=== PATIENT | male | born 1990 | race Caucasian/White ===

== ENCOUNTER 2024-05-25 16:46 | Emergency (ER) | payer BC, SELFPAY ==
[2024-05-25 16:57] VITALS: BP 139/93
[2024-05-25 17:24] LABS: % Basophils 0.6 % (0-2); % Immature Granulocytes 0.5 % (0-0.5); % Lymphocytes 13.1 % (20.5-51.1); % Monocytes 7.6 % (1.7-9.3); % Neutrophils 75.2 % (42.2-75.2); Absolute Eosinophils 0.2 10^3/uL (0-0.7); Absolute Lymphocytes 0.8 10^3/uL (1.2-3.4); Absolute Monocytes 0.5 10^3/uL (0.1-0.6); Absolute Neutrophils 4.8 10^3/uL (1.4-6.5); Hematocrit 38.6 % (39.0-52.0); Hemoglobin 13.1 g/dL (13.0-18.0); Mean Corp Hgb Conc. 33.9 g/dL (33.0-37.0); Mean Corpuscular Volume 85.4 fL (80.0-94.0); Mean Platelet Volume 8.4 fL (7.4-10.4); Nucleated Red Blood Cells % 0 % (-); Platelet Count 566 10^3/uL (130-400); Red Blood Cell Count 4.52 10^6/uL (4.70-6.10); Red Cell Dist. Width 14.2 % (11.5-14.5); White Blood Cell Count 6.4 10^3/uL (4.8-10.8)
[2024-05-25 17:37] LABS: ALT (SGPT) 24 U/L (0-50); AST (SGOT) 26 U/L (17-59); Albumin 4.6 g/dl (3.5-5.0); Alkaline Phosphatase 93 U/L (38-126); Blood Urea Nitrogen 15 mg/dl (9-20); Calcium 9.6 mg/dl (8.4-10.2); Carbon Dioxide 22 mmol/L (22-30); Chloride 103 mmol/L (98-107); Glucose 83 mg/dl (70-99); Potassium 3.8 mmol/L (3.5-5.1); Sodium 141 mmol/L (135-145); Total Bilirubin 0.5 mg/dl (0.2-1.3); Total Protein 7.6 g/dl (6.3-8.2); eGFR > 60.00
--- NOTE | 2024-05-25 18:35 | ED.GENMED ---
History of Present Illness
General
Chief Complaint: Skin Problem
Source: patient
Exam Limitations: none
Time Seen by Provider: 05/25/24 17:56
History of Present Illness
History of Present Illness:
This is a 33 year male that comes in with c/o poison on the right arm with open area's due to patient scratching and an abscess on the left wrist. States that he had had some kind of poison on the right arm and it seemed to gl away and then came
back. States that he has been scratching. States that this started yesterday. Then on the left wrist he has an abscess or a bug bit that started 5 days ago. States that this area is red and tender to the touch. Denies any fever, chills, chest pain,
SOB, abd pain, nausea, vomiting, diarrhea, headache, dizziness, urinary burning.
Past History
Past History
ED Past Medical History: Asthma, Seizures and Other (ADHD, Pancreatitis, )
ED Past Surgical History: Other (Nose surgery)
Social History
Tobacco: Non-smoker
Alcohol: Occasional
Personal: Single
Living: with family
Review of Systems
Review of Systems
All Other Systems: ROS reviewed and negative except as documented in HPI and ROS
Constitutional: Reports no symptoms; Denies fever or chills
EENT: Reports no symptoms
Respiratory: Reports no symptoms; Denies cough or trouble breathing
Cardiac: Reports no symptoms; Denies chest pain
ABD/GI: Reports no symptoms; Denies abdominal pain, nausea, vomiting or diarrhea
: Reports no symptoms; Denies dysuria, frequency or urgency
Musculoskeletal: Reports no symptoms
Skin: Reports other (OPen area on the right upper arm and forearm with slight redness and swelling of the arm. Abscess noted on the left lateral wrist area with redness and tenderness to the touch. )
Neurological: Reports no symptoms; Denies dizzy or headache
Psychiatric: Reports no symptoms
Phy Exam
General Physical Exam
General Presentation: well appearing and no apparent distress
General age: appears stated age
General Skin: warm and dry
General Habitus: poor hygiene
General Mental: alert
General Hydration: appears well hydrated
ENT Exam
ENT Exam: TM's normal, pharynx normal and neck supple
Eye Exam
Eye Exam: EOMI
Cardiovascular Exam
Cardiovascular Exam: regular rate/rhythm, no murmur and normal peripheral pulses
Pulmonary Exam
Pulmonary Exam: lungs clear, no respiratory distress, no rales, chest non tender, no crackles, no rhonchi, no wheezing and no cough
Gastrointestinal Exam
Gastrointestinal Exam: normal bowel sounds, non tender, soft, no organomegaly, no pulsatile mass and non distended
Musculoskeletal Exam
Musculoskeletal Exam: full ROM and other (right slightly swollen normal peripheral pulse)
Skin Exam
Skin Exam: normal color, warm/dry, no petechia and other (Slight redness of the right arm with redness and open wounds on the upper and lower arm. Left wrist abscess with redness. )
Psychiatric Exam
Psychiatric Exam: normal mood/affect
Course
Orders/Labs/Results
Orders:
Orders
05/25/24 17:14
Complete Blood Count/With Diff Urgent
Comprehensive Metabolic Panel Urgent
05/25/24 18:34
Cephalexin Monohydrate [Keflex] 500 mg PO NOW STA
Sulfamethox./Trimethoprim Ds [Bactrim Ds 800 mg/160 mg] 1 tablet PO NOW STA
Abnormal Lab Results
05/25/24
17:14
RBC 4.52 L 10^6/uL
(4.70-6.10)
Hct 38.6 L %
(39.0-52.0)
Plt Count 566 H 10^3/uL
(130-400)
Absolute Lymphs (auto) 0.8 L 10^3/uL
(1.2-3.4)
Lymphocytes % 13.1 L %
(20.5-51.1)
05/25/24 17:14
05/25/24 17:14
Thrombocytosis, Otherwise normal labs.
Vital Signs
Initial and Last Documented VS:
Initial Vital Signs
Temp Pulse Resp BP Pulse Ox
99.3 F 109 16 139/93 98
05/25/24 16:57 05/25/24 16:57 05/25/24 16:57 05/25/24 16:57 05/25/24 16:57
Last Documented Vital Signs
Temp Pulse Resp BP Pulse Ox
99.3 F 109 16 139/93 98
05/25/24 16:57 05/25/24 16:57 05/25/24 16:57 05/25/24 16:57 05/25/24 16:57
Procedures
Incision/Drainage/Joint Aspiration
Left Lateral Wrist:
Anethesia: 1% Lidocaine
Preparation: cleaned with Betadine (and alcohol)
Type of procedure: incise
Nature of site: abscess
Description of abscess: less than 3cm
Loculations broken up: Yes
How much fluid was obtained?: scant amount
Fluid description: bloody
Treatment: left open for drainage and antibiotics started
MDM/Problems Addressed
Differential Diagnosis Includes:
slight Cellulitis right arm, Abscess left wrist
MDM/Problems Addressed:
This is a 33 year old male that comes in with c/o open wound on the right arm and an abscess. bug bite on the left wrist. States that the right arm started yesterday and the left arm was 5 days ago.
Left wrist abscess opened and culture obtained with scan amount or blood drainage. Right upper arm and forearm open wounds from scratching with slight cellulitis fo the arm. Will start patient on antibiotics and sent prescription to his pharmacy.
Patient to return with fever, increased redness or swelling or any other concerns.
Chronic conditions affecting care:
NA
Acute Exacerbation and/or Progression of Chronic Illness:
NA
*Pulse Oximetry
Patient hypoxic: no
*EKG
Interpreted by ED Provider?: NA
Rate: EKG- N/A
*Wrapper Stitcher Interpretation
Rate: Wrapper Stitcher- N/A
*Critical Care Note
Total Time (30-74mins, 75-104mins- exclusive of procedures): Not Applicable
ED Attending Note
-
Portions of this chart may have been created with voice recognition software.� Occasional wrong word or��sound alike� substitutions may have occurred due to the inherent limitations of voice recognition software.
Discharge Plan
Departure
Patient Disposition: Home (Routine Discharge)
Date of Disposition: 05/25/24
Time of Disposition: 18:51
Patient with high blood pressure during this ER visit?: Yes
Condition: Good
Covid-19: Not Applicable
Discharge Problem:
Cellulitis of arm, right, Open wounds right arm, Abscess of skin of left wrist
Instructions: Wound Care (DC), Cellulitis (Skin Infection), Adult (DC), BLOOD PRESSURE, Skin Abscess
Prescriptions:
New
cephalexin 500 mg capsule
500 mg PO QID 10 Days Qty: 40 0RF
sulfamethoxazole-trimethoprim [Bactrim DS] 800-160 mg tablet
1 tab PO BID 7 Days Qty: 14 0RF
Referrals:
NONE,* [Family Provider] -
Activity Restrictions/Additional Instructions:
As discussed, the right arm appears to have a slight cellulitis due to the open wounds and scratching. Please try and not scratch. You may use Benadryl 50mg as needed for the itching. This will make you tired. You have had the left wrist abscess
opened but there was scant amount of drainage. Please keep both the right arm and left wrist clean with warm soapy water. You have been started on 2 antibiotics and 2 prescriptions have been sent to your Pharmacy. Please take as directed until
finished. Please follow up with the family doctor in the next 2-3 days for recheck. IF YOU HAVE FEVER, INCREASED REDNESS OR SWELLING OR YOU HAVE ANY OTHER CONCERNS PLEASE RETURN TO THE EMERGENCY ROOM.
Discharge Date and Time
Print Language: AZERI
[2024-05-25] MEDS: KEFLEX 500 MG PO (18:53)
[2024-05-25] MEDS: BACTRIM DS 800 MG/160 MG 1 TABLET PO (18:53)
[2024-05-25 18:55] VITALS: BP 134/84
== END 2024-05-25 19:05 | disposition home or self-care (01) ==
LOC: EMR 16:46
PROVIDERS: Student in an Organized Health Care Education/Training Program; EMERGENCY PHYSICIAN Student in an Organized Health Care Education/Training Program
DX: S51.809A Unspecified open wound of unspecified forearm, initial encounter (principal); L02.414 Cutaneous abscess of left upper limb; X58.XXXA Exposure to other specified factors, initial encounter; J45.909 Unspecified asthma, uncomplicated; F90.9 Attention-deficit hyperactivity disorder, unspecified type
CPT/HCPCS: 99283; 10060; 80053; 85025; 87070; 87147; 87186; 87205

== ENCOUNTER 2024-08-01 18:59 | Emergency (ER) | payer BC, SELFPAY ==
[2024-08-01 19:01] VITALS: BP 160/88
--- NOTE | 2024-08-01 19:21 | ED.GENMED ---
History of Present Illness
General
Chief Complaint: Cold/Flu/URI Symptoms
Time Seen by Provider: 08/01/24 19:21
History of Present Illness
History of Present Illness:
TIME OF INITIAL ENCOUNTER: 7:25 PM
HPI: 10 days ago, the patient went to an urgent care near his place of work in [place]. At that time he was diagnosed with strep throat and placed on 10 days of antibiotics. This initially helped his throat pain but now his throat pain has
recurred. He feels somewhat feverish at times, has a headache and overall myalgias. There is some degree of coughing. He feels the symptoms are bad enough that he needs to have an IV.
EXAM:
GENERAL: Well appearing in no distress, no meningeal signs
HEENT: Moist oral mucosa, no evidence of JIRA DEVELOPER on exam, minimal posterior oropharyngeal erythema without exudate
CARDIOVASCULAR: No murmurs, normal heart rate, regular rhythm, No chest wall tenderness
PULMONARY: No respiratory distress, breath sounds are clear and equal
ABDOMEN: Soft with no peritoneal signs, no tenderness
NEUROLOGIC: Excellent strength all extremities, no coordination deficits
PSYCHIATRIC: Appropriate mental status, normal insight and judgement
EXTREMITIES: Nontender, no edema, moves all extremities equally
SKIN: No rash, no lesions
NUMBER AND COMPLEXITY OF PROBLEMS ADDRESSED AT THE ENCOUNTER
� Chronic conditions affecting care: Seizures, asthma, ADHD
� Acute Exacerbation and/or Progression of Chronic Illness: This is an acute problem
� Differential Diagnosis includes: Viral syndrome, no evidence of JIRA DEVELOPER based on physical examination, sepsis unlikely, dehydration
AMOUNT AND/OR COMPLEXITY OF DATA TO BE REVIEWED AND ANALYZED
� I performed an independent evaluation of and my interpretation is:
EKG:
CT:
X-rays:
Laboratory Studies: White count is 15.5, hemoglobin normal, chemistries unremarkable, mono and COVID-negative
Other:
� Review of other/old records: The patient has been seen here in May of chills and 24 related to an abscess of the left wrist
� Clinical information was obtained by an independent historian: None needed
� Prescriptions/Medications Considered but not given:
� Further testing considered but not performed: Considered x-ray however the symptoms are more diffuse and he has no significant shortness of breath and was recently on antibiotics.
RISK OF COMPLICATIONS AND/OR MORBIDITY OR MORTALITY OF PATIENT MANAGEMENT
� Social determinants of health affecting care: Lives at home
� Discussion with other providers:
� Escalation of care including admission/observation vs risk of discharge considered: See below
ANY OTHER UPDATES:
8:50 PM: I reevaluated patient. The patient does report some improvement after meds given. Leukocytosis is noted with a mild left shift however he is afebrile and heart rate is 91. He is very well-appearing. His breath sounds were clear. As he
has associated headache and myalgias, I suspect that he has a viral syndrome.
Past History
Past History
ED Past Medical History: Asthma, Seizures and Other (ADHD, Pancreatitis, )
ED Past Surgical History: Other (Nose surgery)
Social History
Tobacco: Non-smoker
Alcohol: Occasional
Personal: Single
Living: with family
Phy Exam
Physical Exam
Physical Exam:
See HPI
Course
Orders/Labs/Results
Orders:
Orders
08/01/24 19:03
Electrocardiogram (*1) Urgent
Reason for Study: Chest Pain
EKG- Treatment ONCE
08/01/24 19:26
0.9% Sodium Chloride 1000 ml [Nss] 1,000 ml IV BOLUS
Dexamethasone Sod Phosphate [Decadron] 10 mg IV NOW STA
Ketorolac [Toradol] 15 mg IV NOW STA
08/01/24 19:39
COVID-19 Antigen Urgent
Source: Nasal Swab
Complete Blood Count/With Diff Urgent
Comprehensive Metabolic Panel Urgent
Monotest Urgent
Influenza A+B Rapid Molecular Urgent
YENI Source: Nasal Swab
Specimen Description:
Abnormal Lab Results
08/01/24
19:39
WBC 15.8 H 10^3/uL
(4.8-10.8)
RBC 4.66 L 10^6/uL
(4.70-6.10)
Abs Immat Gran (auto) 0.1 H 10^3/uL
(0-0.05)
Absolute Neuts (auto) 13.0 H 10^3/uL
(1.4-6.5)
Absolute Monos (auto) 1.1 H 10^3/uL
(0.1-0.6)
Neutrophils % 82.2 H %
(42.2-75.2)
Lymphocytes % 9.3 L %
(20.5-51.1)
Chloride 97 L mmol/L
(98-107)
08/01/24 19:39
08/01/24 19:39
Vital Signs
Initial and Last Documented VS:
Initial Vital Signs
Temp Pulse Resp BP Pulse Ox
99.1 F 108 16 160/88 97
08/01/24 19:01 08/01/24 19:01 08/01/24 19:01 08/01/24 19:01 08/01/24 19:01
Last Documented Vital Signs
Temp Pulse Resp BP Pulse Ox
99.1 F 91 16 132/84 97
08/01/24 19:01 08/01/24 19:58 08/01/24 19:01 08/01/24 19:58 08/01/24 19:01
*Critical Care Note
Total Time (30-74mins, 75-104mins- exclusive of procedures): Not Applicable
ED Attending Note
-
Portions of this chart may have been created with voice recognition software.� Occasional wrong word or��sound alike� substitutions may have occurred due to the inherent limitations of voice recognition software.
Discharge Plan
Departure
Prescriptions:
No Action
cephalexin 500 mg capsule
500 mg PO QID 10 Days Qty: 40 0RF
sulfamethoxazole-trimethoprim [Bactrim DS] 800-160 mg tablet
1 tab PO BID 7 Days Qty: 14 0RF
Referrals:
Kate Ramirez MD [Family Provider] -
Interventions
Interventions:
*Risk Screen - Suicide Last Done: 08/01/24 19:03
*General Assessment Last Done: 08/01/24 20:00
*Neglect/Abuse Screening Last Done: 08/01/24 19:03
*ED COVID-19 Vaccine History Last Done: 08/01/24 19:03
ED- Pulmonary Assessment Last Done: 08/01/24 20:00
Discharge Date and Time
Print Language: VINCENTIAN
[2024-08-01] MEDS: DECADRON 10 MG IV (19:42)
[2024-08-01] MEDS: TORADOL 15 MG IV (19:43)
[2024-08-01] MEDS: NSS 1000 IV (19:44)
[2024-08-01 19:48] LABS: % Basophils 0.4 % (0-2); % Eosinophils 0.8 % (0-6); % Immature Granulocytes 0.4 % (0-0.5); % Lymphocytes 9.3 % (20.5-51.1); % Monocytes 6.9 % (1.7-9.3); % Neutrophils 82.2 % (42.2-75.2); Absolute Basophils 0.1 10^3/uL (0-0.2); Absolute Eosinophils 0.1 10^3/uL (0-0.7); Absolute Immature Granulocytes 0.1 10^3/uL (0-0.05); Absolute Lymphocytes 1.5 10^3/uL (1.2-3.4); Absolute Monocytes 1.1 10^3/uL (0.1-0.6); Hematocrit 40.1 % (39.0-52.0); Hemoglobin 13.6 g/dL (13.0-18.0); Mean Corp Hgb Conc. 33.9 g/dL (33.0-37.0); Mean Corpuscular Hgb 29.2 pg (27.0-31.0); Mean Corpuscular Volume 86.1 fL (80.0-94.0); Mean Platelet Volume 8.3 fL (7.4-10.4); Nucleated Red Blood Cells % 0 % (-); Platelet Count 387 10^3/uL (130-400); Red Blood Cell Count 4.66 10^6/uL (4.70-6.10); Red Cell Dist. Width 14.4 % (11.5-14.5); White Blood Cell Count 15.8 10^3/uL (4.8-10.8)
[2024-08-01 19:58] VITALS: BP 132/84
[2024-08-01 20:01] LABS: COVID-19 Antigen Negative (Negative)
[2024-08-01 20:03] LABS: Monotest Negative (Negative)
[2024-08-01 20:06] LABS: ALT (SGPT) 48 U/L (0-50); AST (SGOT) 35 U/L (17-59); Albumin 4.6 g/dl (3.5-5.0); Alkaline Phosphatase 78 U/L (38-126); Blood Urea Nitrogen 18 mg/dl (9-20); Calcium 9.6 mg/dl (8.4-10.2); Carbon Dioxide 25 mmol/L (22-30); Chloride 97 mmol/L (98-107); Glucose 83 mg/dl (70-99); Potassium 3.9 mmol/L (3.5-5.1); Sodium 138 mmol/L (135-145); Total Bilirubin 0.7 mg/dl (0.2-1.3); Total Protein 7.7 g/dl (6.3-8.2); eGFR > 60.00
== END 2024-08-01 21:39 | disposition home or self-care (01) ==
LOC: EMR 18:59
PROVIDERS: EMERGENCY PHYSICIAN Emergency Medicine; FAMILY PHYSICIAN Family Medicine
DX: B34.9 Viral infection, unspecified (principal); J45.909 Unspecified asthma, uncomplicated; F90.9 Attention-deficit hyperactivity disorder, unspecified type; G40.909 Epilepsy, unspecified, not intractable, without status epilepticus
CPT/HCPCS: 99283; 80053; 85025; 86308; 87502; 87811; 93005